=== PATIENT | male | born 1990 | race Caucasian/White ===

== ENCOUNTER 2017-01-08 19:48 | Emergency (ER) | payer MEDICAID ==
[2017-01-08] MEDS ORDERED: Naloxone 0.4 mg/ml Inj (Adult) IVP STA (20:32)
[2017-01-08] MEDS ORDERED: Sodium Chloride 0.9% 1,000 ML IV STA (20:32)
--- NOTE | 2017-01-08 21:18 | ED PDOC ---
HPI: General Adult Time Seen by Provider: 01/08/17 20:11 Chief Complaint (Nursing): Altered Mental Status Chief Complaint (Provider): Substance Abuse History Per: Patient, Family (pt.'s cousin) Additional Complaint(s): As per pt.'s cousin, pt. met with a friend who is known to do GHB, heroin, and cocaine today. States that when he saw his cousin at first today he was acting normally but right after meeting with his friend he began to act strange and progressively worsened as pt. fell asleep and was unable to be woken up. Pt.'s cousin contacted police and EMS who gave pt. 1 dose of narcan and pt. regained consciousness. Offers no complaints at this time. Pt. admits to taking GHB today. Past Medical History Reviewed: Historical Data, Nursing Documentation, Vital Signs Vital Signs: Last Vital Signs Temp 98.2 F 01/09/17 00:04 Pulse 68 01/09/17 00:04 Resp 18 01/09/17 00:04 BP 130/78 01/09/17 00:04 Pulse Ox 99 01/09/17 00:04 - Family History Family History: States: No Known Family Hx - Social History Drugs: Cocaine, Opiates - Allergies Allergies/Adverse Reactions: Allergies Allergy/AdvReac Type Severity Reaction Status Date / Time Unobtainable Allergy Verified 01/08/17 19:52 Review of Systems ROS Statement: Except As Marked, All Systems Reviewed And Found Negative Physical Exam - Reviewed Nursing Documentation Reviewed: Yes Vital Signs Reviewed: Yes - Physical Exam Appears: Positive for: Well, Non-toxic, No Acute Distress Head Exam: Positive for: ATRAUMATIC, NORMAL INSPECTION, NORMOCEPHALIC Skin: Positive for: Normal Color, Warm. Negative for: Rash Eye Exam: Positive for: EOMI, Normal appearance, PERRL ENT: Positive for: Normal ENT Inspection Neck: Positive for: Normal, Painless ROM Cardiovascular/Chest: Positive for: Regular Rate, Rhythm Respiratory: Positive for: CNT, Normal Breath Sounds Gastrointestinal/Abdominal: Positive for: Normal Exam, Soft. Negative for: Tenderness Back: Positive for: Normal Inspection Extremity: Positive for: Normal ROM Neurologic/Psych: Positive for: Alert, Oriented, Other (somnolent but easily arousable to tactile stimuli). Negative for: Aphasia, Facial Droop - Laboratory Results Result Diagrams: 01/08/17 21:15 01/08/17 21:15 - ECG ECG: Positive for: Interpreted By Me ECG Rhythm: Positive for: Sinus Rhythm. Negative for: ST/T Changes Rate: 89 O2 Sat by Pulse Oximetry: 98 - Radiology X-Ray: Interpreted by Me (CXR) X-Ray Interpretation: No Acute Disease - Progress ED Course And Treament: Labs ordered. Pt placed on monitor. On re-evaluation, pt. AAOx3 and admitted to using GHB. Offers no complaints at this time. Pt. with steady and unassisted gait. Denies abdominal pain, headache , fever. Abd remains soft and non-tender to deep palpation. Neck remains fully supple. No slurred speech. Pt. will be going home with his cousin, Raphael. Pt. informed of elevated WBC and instructed to f/u with [facility]. Disposition - Clinical Impression Clinical Impression: Substance abuse, Leukocytosis - Patient ED Disposition Is Patient to be Admitted: No - Disposition Referrals: [facility] [Outside] Disposition: Routine/Home Disposition Time: 00:11 Condition: IMPROVED Instructions: Polysubstance Abuse (ED)
[2017-01-08 21:40] LABS: BASO % 0.3 % (0.0-2.0); EOS # 0.1 K/uL (0.0-0.7); EOS % 0.3 % (0.0-4.0); HEMATOCRIT 46.4 % (35.0-51.0); LYMPH # 1.5 K/uL (1.0-4.3); LYMPH % 8.3 % (20.0-40.0); MEAN CELL VOLUME 89.3 fl (80.0-94.0); MEAN CORPUSCULAR HGB CONC 32.5 g/dL (33.0-37.0); MEAN PLATELET VOLUME 8.9 fl (7.2-11.7); MONO # 0.6 K/uL (0.0-0.8); MONO % 3.2 % (0.0-10.0); NEUT % 87.9 % (50.0-75.0); PLATELET COUNT 240 K/uL (130-400); RED CELL DISTRIBUTION WIDTH 14.3 % (11.5-14.5); WHITE BLOOD COUNT 18.2 K/uL (4.8-10.8)
[2017-01-08 21:52] LABS: ALB/GLOB RATIO 1.4 (1.0-2.1); ALCOHOL SERUM < 10 mg/dl (0-10); ALKALINE PHOSPHATASE 74 U/L (38-126); ALT/SGPT 32 U/L (21-72); AST/SGOT 21 U/L (17-59); BILIRUBIN,TOTAL 0.5 mg/dl (0.2-1.3); BLOOD UREA NITROGEN 10 mg/dl (9-20); CALCIUM 9.8 mg/dL (8.4-10.2); CARBON DIOXIDE 26 mmol/L (22-30); CHLORIDE 100 mmol/L (98-107); GFR AFRICAN-AMERICAN > 60; GLUCOSE,RANDOM 98 mg/dL (75-110); POTASSIUM 4.4 MMOL/L (3.6-5.0); SODIUM 137 mmol/l (132-148); TOTAL PROTEIN 8.1 G/DL (6.3-8.2)
[2017-01-08 22:31] LABS: RBC URINE 2 /hpf (0-3); URINE BILIRUBIN NEGATIVE (NEGATIVE); URINE BLOOD NEGATIVE (NEGATIVE); URINE COLOR YELLOW (YELLOW); URINE GLUCOSE (UA) NEG (Normal); URINE KETONE TRACE mg/dL (NEGATIVE); URINE LEUKOCYTE ESTERASE NEG Leu/uL (Negative); URINE PROTEIN NEGATIVE (NEGATIVE); URINE UROBILINOGEN 0.2-1.0 mg/dL (0.2-1.0); WBC URINE 1 /hpf (0-5)
[2017-01-08 22:59] LABS: EOSINOPHIL 1 % (0-7); NEUTROPHIL 85 % (42-75); TOTAL CELLS COUNTED 100
[2017-01-09 00:06] VITALS: BP 130/78; RESP 18; TEMP 98.2
[2017-01-09 00:11] VITALS: PULSE 89; O2SAT 98
--- NOTE | 2017-01-09 07:09 | CARD ---
APPROVED REPORT EKG Measurement Heart [id number] <Conclusion> Normal sinus rhythm Normal ECG
--- NOTE | 2017-01-09 10:34 | RAD ---
HISTORY: substance abuse COMPARISON: None available. TECHNIQUE: Chest, one view. FINDINGS: External cardiac wires. Patient's necklace obscures evaluation of the lower neck. LUNGS: Hypoinflation. No focal consolidation. Please note that chest x-ray has limited sensitivity for the detection of pulmonary masses. PLEURA: No significant pleural effusion identified. No definite pneumothorax . CARDIOVASCULAR: The cardiomediastinal silhouette appears within normal limits of size. OSSEOUS STRUCTURES: No acute osseous abnormality identified. VISUALIZED UPPER ABDOMEN: Unremarkable. OTHER FINDINGS: None. IMPRESSION: No focal consolidation, significant pleural effusion, or definite pneumothorax identified.
== END 2017-01-09 00:25 | disposition home or self-care (01) ==
LOC: H.ER 19:48
DX: F19.10 Other psychoactive substance abuse, uncomplicated (principal); D72.829 Elevated white blood cell count, unspecified